=== PATIENT | male | born 1940 | race Caucasian/White ===

== ENCOUNTER 2017-10-01 20:44 | Emergency (ER) | payer MEDICARE ==
[~2017-10-01] VITALS: Ht 182.9 cm; Wt 84.0 kg
[~2017-10-01 20:44] MED LIST: CHOL100046 PO; CLE150C PO; CLOP75TA35 PO; FLUO20CA39 PO; LACT1CAP26 PO; PANT20TA2 PO; SIMV20TA5 PO; ZOLP10TA5 PO
[2017-10-01] MEDS ORDERED: LORazepam 2 mg/ml vial IV ONE (21:35)
[2017-10-01 21:49] LABS: BASOPHILS # (AUTO) 0.1 X10'3 (0-0.2); BASOPHILS % (AUTO) 0.5 % (0-1); EOSINOPHILS # (AUTO) 0.7 X10'3 (0-0.9); EOSINOPHILS % (AUTO) 6.9 % (0-6); HEMATOCRIT 35.6 % (42.0-52.0); HEMOGLOBIN 12.3 g/dl (14.0-17.9); LYMPHOCYTES # (AUTO) 2.3 X10'3 (1.1-4.8); LYMPHOCYTES % (AUTO) 22.2 % (21-51); MEAN CORPUSCULAR HEMOGLOBIN 33.3 PG (27.0-31.0); MEAN CORPUSCULAR HGB CONC 34.7 % (33.0-36.5); MEAN CORPUSCULAR VOLUME 95.9 FL (78-98); MEAN PLATELET VOLUME 7.3 FL (7.4-10.4); MONOCYTES # (AUTO) 1.4 X10'3 (0-0.9); MONOCYTES % (AUTO) 13.4 % (2-12); NEUTROPHILS # (AUTO) 5.9 X10'3 (1.8-7.7); PLATELET COUNT 268 X10'3 (140-440); RED BLOOD COUNT 3.71 X10'6 (4.70-6.10); RED CELL DISTRIBUTION WIDTH 14.5 % (11.5-14.5); WHITE BLOOD COUNT 10.3 X10'3 (4.5-11.0)
[2017-10-01] MEDS ORDERED: LORA-269 PO (21:57)
[2017-10-01 22:11] LABS: ALBUMIN 3.9 G/DL (3.4-5.0); ANION GAP 9 (8-16); BLOOD UREA NITROGEN 22 MG/DL (7-18); CALCIUM 8.7 MG/DL (8.5-10.1); CHLORIDE 105 MMOL/L (99-107); CREATININE 1.22 MG/DL (0.60-1.10); GLUCOSE 104 MG/DL (70-104); SODIUM 141 MMOL/L (135-145); TOTAL CARBON DIOXIDE 26.9 MMOL/L (24-32); TROPONIN I < 0.04 NG/ML (0.0-0.05); eGFR 58 ML/MIN
[2017-10-01 22:28] VITALS: BP 137/69
== END 2017-10-01 22:31 | disposition home or self-care (01) ==
LOC: ER 20:44
DX: R03.0 Elevated blood-pressure reading, without diagnosis of hypertension (principal); T50.995A Adverse effect of other drugs, medicaments and biological substances, initial encounter; E78.00 Pure hypercholesterolemia, unspecified; Z86.73 Personal history of transient ischemic attack (TIA), and cerebral infarction without residual deficits; Z79.02 Long term (current) use of antithrombotics/antiplatelets; Z90.49 Acquired absence of other specified parts of digestive tract; Z98.890 Other specified postprocedural states; Z79.899 Other long term (current) drug therapy
CPT/HCPCS: 36415; 80048; 84484; 85025; 96374; 99285; J2060

== ENCOUNTER 2018-08-02 06:55 | Emergency (ER) | payer MEDICARE ==
[~2018-08-02] VITALS: Ht 182.9 cm; Wt 87.1 kg
[~2018-08-02 06:55] MED LIST changes: -CHOL100046 PO; -CLE150C PO; -LACT1CAP26 PO
[2018-08-02 08:11] LABS: BASOPHILS % (AUTO) 0.7 % (0-1); EOSINOPHILS # (AUTO) 0.8 X10'3 (0-0.9); EOSINOPHILS % (AUTO) 12.3 % (0-6); HEMATOCRIT 36.6 % (42.0-52.0); HEMOGLOBIN 12.2 g/dl (14.0-17.9); LYMPHOCYTES # (AUTO) 1.8 X10'3 (1.1-4.8); MEAN CORPUSCULAR HEMOGLOBIN 32.5 PG (27.0-31.0); MEAN CORPUSCULAR HGB CONC 33.3 % (33.0-36.5); MEAN CORPUSCULAR VOLUME 97.5 FL (78-98); MEAN PLATELET VOLUME 6.8 FL (7.4-10.4); MONOCYTES % (AUTO) 14.6 % (2-12); NEUTROPHILS # (AUTO) 2.9 X10'3 (1.8-7.7); NEUTROPHILS % (AUTO) 44.4 % (42-75); PLATELET COUNT 373 X10'3 (140-440); RED BLOOD COUNT 3.75 X10'6 (4.70-6.10); RED CELL DISTRIBUTION WIDTH 14.1 % (11.5-14.5); WHITE BLOOD COUNT 6.5 X10'3 (4.5-11.0)
[2018-08-02 08:23] LABS: CLARITY,URINE CLEAR (Clear); COLOR,URINE YELLOW (Yellow); GLUCOSE, URINE NEGATIVE (Neg); KETONES,URINE NEGATIVE (Neg); LEUKOCYTE ESTERASE ,URINE NEGATIVE (Neg); NITRITES, URINE NEGATIVE (Neg); OCCULT BLOOD,URINE NEGATIVE (Neg); PROTEIN,URINE NEGATIVE (Neg); UROBILINOGEN,URINE 0.2 E.U/dL (0.2-1.0)
[2018-08-02 08:24] LABS: UA COLLECTION TYPE CLN CATCH MIDSTREAM
[2018-08-02 08:30] LABS: ALANINE AMINOTRANSFERASE 19 U/L (12-78); ALBUMIN 3.5 G/DL (3.4-5.0); ALKALINE PHOSPHATASE 105 IU/L (46-116); ANION GAP 10 (8-16); ASPARTATE AMINO TRANSFERASE 17 U/L (10-37); BILIRUBIN,TOTAL 0.3 MG/DL (0.1-1.0); BLOOD UREA NITROGEN 14 MG/DL (7-18); BUN/CREATININE RATIO 11.9 (5.4-32.0); CALCIUM 8.5 MG/DL (8.5-10.1); CHLORIDE 104 MMOL/L (99-107); CREATININE 1.18 MG/DL (0.60-1.10); GLUCOSE 107 MG/DL (70-104); LIPASE < 50 U/L (73-393); POTASSIUM 4.1 MMOL/L (3.5-5.1); SODIUM 139 MMOL/L (135-145); TOTAL CARBON DIOXIDE 25.1 MMOL/L (24-32); TOTAL PROTEIN 6.9 G/DL (6.4-8.2); eGFR 60 ML/MIN
[2018-08-02 08:48] VITALS: BP 177/105
[2018-08-02] MEDS ORDERED: HYDR-4353 PO (09:02)
[2018-08-02] MEDS ORDERED: ORPH100T2 PO (09:02)
== END 2018-08-02 09:12 | disposition home or self-care (01) ==
LOC: ER 06:56
DX: M54.5 Low back pain (principal); M54.17 Radiculopathy, lumbosacral region; E78.00 Pure hypercholesterolemia, unspecified; Z86.73 Personal history of transient ischemic attack (TIA), and cerebral infarction without residual deficits; Z90.49 Acquired absence of other specified parts of digestive tract; Z98.890 Other specified postprocedural states; Z79.01 Long term (current) use of anticoagulants; Z79.899 Other long term (current) drug therapy
CPT/HCPCS: 36415; 80053; 81003; 83690; 85025; 99284

== ENCOUNTER 2018-10-04 09:34 | Inpatient (IN) | payer MEDICARE | END 2018-10-05 11:00 | disposition home or self-care (01) | LOC: PAS IN 09:34 → ICU 2S 14:25 | PROC: 03CH0ZZ Extirpation of Matter from Right Common Carotid Artery, Open Approach (ICD-10-PCS; principal; 2018-10-04 11:29) | DX: I65.21 Occlusion and stenosis of right carotid artery (principal) ==

== ENCOUNTER 2020-10-25 11:11 | Inpatient (IN) | payer MEDICARE ==
[~2020-10-25] VITALS: Ht 188 cm; Wt 95.5 kg
[~2020-10-25 11:11] MED LIST changes: +CLOP75TA34 PO; -CLOP75TA35 PO; +PROM25TA14 PO; +SIMV-42 PO; -SIMV20TA5 PO; +TURMERIC
--- NOTE | 2020-10-25 11:33 | NUR ---
Per Dr Headley, continue current orders, but pt is suspected s/p seizure and not a stroke at this time.
--- NOTE | 2020-10-25 11:34 | NUR ---
Pt transported to CT via [facility] with tech.
[2020-10-25 12:01] LABS: BASOPHILS # (AUTO) 0.1 X10'3 (0-0.2); BASOPHILS % (AUTO) 1.1 % (0-1); EOSINOPHILS # (AUTO) 0.5 X10'3 (0-0.9); EOSINOPHILS % (AUTO) 8.4 % (0-6); HEMATOCRIT 38.1 % (42.0-52.0); HEMOGLOBIN 12.4 g/dl (14.0-17.9); LYMPHOCYTES # (AUTO) 1.3 X10'3 (1.1-4.8); LYMPHOCYTES % (AUTO) 21.2 % (21-51); MEAN CORPUSCULAR HEMOGLOBIN 32.3 PG (27.0-31.0); MEAN CORPUSCULAR HGB CONC 32.7 g/dL (33.0-36.5); MEAN CORPUSCULAR VOLUME 98.9 FL (78-98); MEAN PLATELET VOLUME 7.2 FL (7.4-10.4); MONOCYTES # (AUTO) 0.9 X10'3 (0-0.9); MONOCYTES % (AUTO) 13.9 % (2-12); NEUTROPHILS # (AUTO) 3.4 X10'3 (1.8-7.7); NEUTROPHILS % (AUTO) 55.4 % (42-75); PLATELET COUNT 230 X10'3 (140-440); RED BLOOD COUNT 3.85 X10'6 (4.70-6.10); RED CELL DISTRIBUTION WIDTH 13.8 % (11.5-14.5); WHITE BLOOD COUNT 6.2 X10'3 (4.5-11.0)
[2020-10-25 12:11] LABS: PARTIAL THROMBOPLASTIN TIME 27 SECONDS (22-32)
[2020-10-25 12:14] LABS: ALANINE AMINOTRANSFERASE 27 U/L (12-78); ALBUMIN 3.4 G/DL (3.4-5.0); ALKALINE PHOSPHATASE 57 IU/L (46-116); ANION GAP 6 (8-16); ASPARTATE AMINO TRANSFERASE 24 U/L (10-37); BILIRUBIN,TOTAL 0.2 MG/DL (0.1-1.0); BLOOD UREA NITROGEN 19 MG/DL (7-18); BUN/CREATININE RATIO 18.6 (5.4-32.0); CALCIUM 8.8 MG/DL (8.5-10.1); CHLORIDE 105 MMOL/L (99-107); CREATININE 1.02 MG/DL (0.60-1.10); GLUCOSE 125 MG/DL (70-104); POTASSIUM 4.4 MMOL/L (3.5-5.1); SODIUM 139 MMOL/L (135-145); TOTAL CARBON DIOXIDE 27.7 MMOL/L (24-32); TOTAL PROTEIN 6.7 G/DL (6.4-8.2); eGFR 70 ML/MIN
[2020-10-25 12:18] LABS: TROPONIN I < 0.04 NG/ML (0.0-0.05)
--- NOTE | 2020-10-25 12:39 | NUR ---
Pt attempted to use urinal. Unable to at this time, will try again in a little bit.
[2020-10-25] MEDS ORDERED: acetaminophen 325mg tablet PO PRN (12:40)
[2020-10-25] MEDS ORDERED: ondansetron/PF 4mg/2ml inj IV PRN (12:40)
[2020-10-25] MEDS ORDERED: magnesium hydroxide 30ml (MOM) UD suspension PO PRN (12:40)
[2020-10-25] MEDS ORDERED: mag hydrox/Alum hydrox/simeth 30ml oral suspension PO PRN (12:40)
[2020-10-25] MEDS ORDERED: ASPI-1265 PO (12:44)
[2020-10-25] MEDS ORDERED: ROSU40TA22 PO (12:44)
[2020-10-25 13:03] LABS: CHOL/HDL RATIO 2.2 (0.00-4.99); CHOLESTEROL 128 MG/DL (0-200); HDL CHOLESTEROL 59 MG/DL (35-60); LDL CHOLESTEROL 49 MG/DL (50-100); TRIGLYCERIDES 93 MG/DL (20-135)
--- NOTE | 2020-10-25 13:26 | NUR ---
Pt's son is Adis Milner. He can be reached at [phone].
[2020-10-25 14:19] LABS: CLARITY,URINE CLEAR (Clear); COLOR,URINE YELLOW (Yellow); GLUCOSE, URINE NEGATIVE (Neg); KETONES,URINE NEGATIVE (Neg); LEUKOCYTE ESTERASE ,URINE NEGATIVE (Neg); NITRITES, URINE NEGATIVE (Neg); OCCULT BLOOD,URINE NEGATIVE (Neg); PROTEIN,URINE NEGATIVE (Neg); UROBILINOGEN,URINE 0.2 E.U/dL (0.2-1.0)
[2020-10-25 14:24] LABS: UA COLLECTION TYPE URINAL
--- NOTE | 2020-10-25 14:25 | NUR ---
Pt in MRI
--- NOTE | 2020-10-25 15:36 | NUR ---
Dr Burt aware of pt's BP of 227/119. He said that we are going to treat it because he is a possible stroke pt.
[2020-10-25] MEDS ORDERED: FLO0.4C PO (15:46)
--- NOTE | 2020-10-25 16:17 | NUR ---
Called report to Neuro. The room is not clean. They will call when the room is ready.
[2020-10-25] MEDS ORDERED: zolpidem 5mg tablet PO PRN ×2 (16:45)
[2020-10-25] MEDS: normal saline 1000ml 1,000 ML IV SCH ×2 (16:54→22:40)
[2020-10-25 17:21] VITALS: BP 203/96
--- NOTE | 2020-10-25 18:30 | NUR ---
Patient in room ORTHO 4007. I have received report from Rashawn WALKER and had the opportunity to ask questions and assume patient care.
--- NOTE | 2020-10-25 19:05 | NUR ---
Problems reprioritized. Patient report given, questions answered & plan of care reviewed with Shira WALKER.
[2020-10-25] MEDS ORDERED: amLODIPine 5mg tablet PO ONE (19:30)
--- NOTE | 2020-10-25 19:39 | NUR ---
Called regarding elevated BP for 211/111 at 1720 and also just rechecked for 203/96, 61. One time order of norvasc 5mg now to be given.
[2020-10-25 19:45] VITALS: BP 211/111
[2020-10-25] MEDS: heparin, porcine 5000 units/ml vial SQ SCH (19:53)
[2020-10-25] MEDS ORDERED: FLUoxetine 20mg capsule PO SCH ×2 (21:00→23:40)
[2020-10-25] MEDS ORDERED: proMETHazine 25mg tablet PO SCH ×2 (21:00→23:39)
[2020-10-25] MEDS ORDERED: pantoprazole 40mg Tablet.DR PO SCH (21:00)
[2020-10-25 22:30] VITALS: BP 178/88
--- NOTE | 2020-10-25 23:00 | NUR ---
aware of BP decreasing although still high at 178/88, 64. No new orders.
--- NOTE | 2020-10-25 23:38 | NUR ---
Message sent down to pharmacy with regards to prozac and phenergan medication. Pt. refused these 2 meds this evening stating "I take them in the AM along with an [id number] stool softner. Obtained order for colace 100mg daily to be given in the AM.
[2020-10-26] MEDS: normal saline 1000ml 1,000 ML IV SCH (02:56)
[2020-10-26 06:00] VITALS: BP 186/92
--- NOTE | 2020-10-26 06:35 | NUR ---
Problems reprioritized. Patient report given, questions answered & plan of care reviewed with Teresa WALKER.
[2020-10-26 07:35] LABS: BASOPHILS # (AUTO) 0.1 X10'3 (0-0.2); BASOPHILS % (AUTO) 0.8 % (0-1); EOSINOPHILS # (AUTO) 0.6 X10'3 (0-0.9); EOSINOPHILS % (AUTO) 6.9 % (0-6); HEMOGLOBIN 12.1 g/dl (14.0-17.9); LYMPHOCYTES # (AUTO) 1.6 X10'3 (1.1-4.8); LYMPHOCYTES % (AUTO) 20.1 % (21-51); MEAN CORPUSCULAR HEMOGLOBIN 32.4 PG (27.0-31.0); MEAN CORPUSCULAR HGB CONC 32.6 g/dL (33.0-36.5); MEAN CORPUSCULAR VOLUME 99.4 FL (78-98); MEAN PLATELET VOLUME 8.1 FL (7.4-10.4); MONOCYTES # (AUTO) 1.1 X10'3 (0-0.9); MONOCYTES % (AUTO) 13.3 % (2-12); NEUTROPHILS # (AUTO) 4.7 X10'3 (1.8-7.7); NEUTROPHILS % (AUTO) 58.9 % (42-75); PLATELET COUNT 244 X10'3 (140-440); RED BLOOD COUNT 3.72 X10'6 (4.70-6.10); RED CELL DISTRIBUTION WIDTH 13.5 % (11.5-14.5)
[2020-10-26 07:36] LABS: ALBUMIN 3.3 G/DL (3.4-5.0); ANION GAP 9 (8-16); BLOOD UREA NITROGEN 18 MG/DL (7-18); BUN/CREATININE RATIO 19.4 (5.4-32.0); CHLORIDE 106 MMOL/L (99-107); CREATININE 0.93 MG/DL (0.60-1.10); GLUCOSE 127 MG/DL (70-104); POTASSIUM 4.7 MMOL/L (3.5-5.1); SODIUM 142 MMOL/L (135-145); TOTAL CARBON DIOXIDE 27.1 MMOL/L (24-32); eGFR 78 ML/MIN
[2020-10-26] MEDS ORDERED: atorvastatin 20mg tablet PO SCH (08:00)
[2020-10-26] MEDS ORDERED: aspirin 81mg tablet.DR PO SCH (08:00)
[2020-10-26] MEDS ORDERED: tamsulosin 0.4mg capsule PO SCH (08:00)
[2020-10-26 10:00] VITALS: BP 99/80
[2020-10-26 10:32] VITALS: BP 127/54
[2020-10-26] MEDS: heparin, porcine 5000 units/ml vial SQ SCH (11:08)
--- NOTE | 2020-10-26 12:15 | NUR ---
PATIENT STABLE AND APPROPRIATE FOR DISCHARGE, TELE REMOVED, IV TAKEN OUT, EDUCATION GIVEN, ALL BELONGINGS SENT WITH PATIENT, PATIENT TAKEN TO LOBBY IN WHEELCHAIR TO AN AWAITING CAR WHERE SON WILL TAKE PATIENT HOME
== END 2020-10-26 14:56 | disposition home health service (06) | DRG 90 ==
LOC: ER 11:11 → ED HOLD 12:40 → EDBEDREQ 15:58 → ORTHO 4S 16:45
PROVIDERS: ADMIT Family Medicine; ATTEND Family Medicine
PROC: 4A10X4Z Monitoring of Central Nervous Electrical Activity, External Approach (ICD-10-PCS; principal; 2020-10-25)
DX: S06.0X9A Concussion with loss of consciousness of unspecified duration, initial encounter (principal); E78.00 Pure hypercholesterolemia, unspecified; E78.5 Hyperlipidemia, unspecified; I10 Essential (primary) hypertension; N40.0 Benign prostatic hyperplasia without lower urinary tract symptoms; F32.9 Major depressive disorder, single episode, unspecified; K21.9 Gastro-esophageal reflux disease without esophagitis; Z86.73 Personal history of transient ischemic attack (TIA), and cerebral infarction without residual deficits; Z90.49 Acquired absence of other specified parts of digestive tract; Z63.4 Disappearance and death of family member; Z88.5 Allergy status to narcotic agent
CPT/HCPCS: 36415; 70450; 70544; 70551; 71045; 80048; 80053; 80061; 81003; 82948; 84484; 85025; 85610; 85730; 87081; 93005; 93306; 93308; 93880; 95816; 99285; G0378; J1644; J7030; Q0169

== ENCOUNTER 2022-03-16 09:32 | Emergency (ER) | payer MEDICARE ==
[~2022-03-16] VITALS: Ht 182.9 cm; Wt 90.9 kg
[~2022-03-16 09:32] MED LIST changes: +DOCU-148 PO; -FLUO20CA39 PO; +FLUO40CA10 PO; +GABA300C PO; +LEVO-65 PO; +MULT-1085 PO; +PANT-47 PO; -PANT20TA2 PO; -PROM25TA14 PO; +ROSU40TA22 PO; -SIMV-42 PO; -TURMERIC
[2022-03-16] MEDS ORDERED: HYDROcodone/acetaminophen 5mg/325mg tablet PO ONE (12:45)
[2022-03-16 13:05] VITALS: BP 196/98
--- NOTE | 2022-03-16 13:06 | NUR ---
Pt connected to jewelry repairer for further observation.
[2022-03-16] MEDS ORDERED: LIDOcaine 1% 30ml preserv. free vial IJ ONE (13:15)
[2022-03-16] MEDS ORDERED: HYDR-3965 PO (14:36)
== END 2022-03-16 14:51 | disposition home or self-care (01) ==
LOC: ER 09:32
DX: S62.307A Unspecified fracture of fifth metacarpal bone, left hand, initial encounter for closed fracture (principal); S43.51XA Sprain of right acromioclavicular joint, initial encounter; E78.00 Pure hypercholesterolemia, unspecified; Z88.5 Allergy status to narcotic agent; Z98.890 Other specified postprocedural states; V29.9XXA Motorcycle rider (driver) (passenger) injured in unspecified traffic accident, initial encounter; Y93.89 Activity, other specified; Y92.89 Other specified places as the place of occurrence of the external cause; Y99.8 Other external cause status; S09.90XA Unspecified injury of head, initial encounter; S16.1XXA Strain of muscle, fascia and tendon at neck level, initial encounter
CPT/HCPCS: 26605; 70450; 72125; 73030; 73120; 73130; 99284; J7030; A4565; A6446; A6449

== ENCOUNTER 2023-08-30 14:38 | Inpatient (IN) | payer MEDICARE ==
[~2023-08-30] VITALS: Ht 182.9 cm; Wt 83.8 kg
[~2023-08-30 14:38] MED LIST changes: -LEVO-65 PO
[2023-08-30 15:52] LABS: BASOPHILS # (AUTO) 0.1 X10'3 (0-0.2); BASOPHILS % (AUTO) 0.6 % (0-1); EOSINOPHILS # (AUTO) 0.4 X10'3 (0-0.9); EOSINOPHILS % (AUTO) 4.2 % (0-6); HEMATOCRIT 39.5 % (42.0-52.0); HEMOGLOBIN 13.3 g/dl (14.0-17.9); LYMPHOCYTES # (AUTO) 1.8 X10'3 (1.1-4.8); LYMPHOCYTES % (AUTO) 19.1 % (21-51); MEAN CORPUSCULAR HEMOGLOBIN 32.4 PG (27.0-31.0); MEAN CORPUSCULAR HGB CONC 33.5 g/dL (33.0-36.5); MEAN CORPUSCULAR VOLUME 96.5 FL (78-98); MEAN PLATELET VOLUME 7.8 FL (7.4-10.4); MONOCYTES # (AUTO) 1.3 X10'3 (0-0.9); MONOCYTES % (AUTO) 14.2 % (2-12); NEUTROPHILS # (AUTO) 5.7 X10'3 (1.8-7.7); NEUTROPHILS % (AUTO) 61.9 % (42-75); PLATELET COUNT 340 X10'3 (140-440); RED CELL DISTRIBUTION WIDTH 13.8 % (11.5-14.5); WHITE BLOOD COUNT 9.2 X10'3 (4.5-11.0)
[2023-08-30 16:13] LABS: D-DIMER 0.69 MG/L FEU (0-0.50)
[2023-08-30 16:24] LABS: ALANINE AMINOTRANSFERASE 25 U/L (12-78); ALBUMIN 3.8 G/DL (3.4-5.0); ALKALINE PHOSPHATASE 64 IU/L (46-116); ANION GAP 9 (8-16); ASPARTATE AMINO TRANSFERASE 25 U/L (10-37); BILIRUBIN,TOTAL 0.5 MG/DL (0.1-1.0); BLOOD UREA NITROGEN 14 MG/DL (7-18); BUN/CREATININE RATIO 13.9 (10.0-20.0); CALCIUM 9.3 MG/DL (8.5-10.1); CHLORIDE 102 MMOL/L (99-107); CREATININE 1.01 MG/DL (0.60-1.10); GLUCOSE 107 MG/DL (70-104); POTASSIUM 4.4 MMOL/L (3.5-5.1); PRO BRAIN NATRIURETIC PEPTIDE 231 PG/ML (0-450); SODIUM 137 MMOL/L (135-145); TOTAL CARBON DIOXIDE 25.9 MMOL/L (24-32); TOTAL PROTEIN 7.7 G/DL (6.4-8.2); eCRCL 61 ML/MIN; eGFR 71 ML/MIN
[2023-08-30] MEDS ORDERED: iohexol 350MG/ML 100ml bottle IV ONE (19:14)
[2023-08-31] MEDS: guaiFENesin 200 MG/10 ML oral syrup UD cup PO ONE (01:33)
[2023-08-31] MEDS ORDERED: acetaminophen 325mg tablet PO PRN ×2 (08:10)
[2023-08-31] MEDS ORDERED: magnesium 4gm in 100ml NS 100 ML IV PRN (08:10)
[2023-08-31] MEDS ORDERED: magnesium 2GM in 50ml NS 50 ML IV PRN (08:10)
[2023-08-31] MEDS ORDERED: ondansetron/PF 4mg/2ml inj IV PRN (08:10)
[2023-08-31] MEDS ORDERED: mag hydrox/Alum hydrox/simeth 30ml oral suspension PO PRN (08:10)
[2023-08-31] MEDS ORDERED: potassium Cl 20 mEq SR tablet PO PRN ×2 (08:10)
[2023-08-31] MEDS ORDERED: potassium Cl 40MEQ/1/2NS 520ml 520 ML IV PRN (08:10)
[2023-08-31] MEDS ORDERED: magnesium hydroxide 30ml (MOM) UD suspension PO PRN (08:10)
[2023-08-31] MEDS ORDERED: magnesium Cl slow-release 64mg tablet PO PRN (08:10)
[2023-08-31] MEDS: guaiFENesin ER 600mg tablet PO SCH (08:22)
[2023-08-31] MEDS ORDERED: FLO0.4C PO (08:34)
[2023-08-31] MEDS ORDERED: ACET-1008 PO (08:34)
[2023-08-31] MEDS ORDERED: PANT-47 PO (08:34)
[2023-08-31] MEDS ORDERED: GABA600T13 PO (08:34)
[2023-08-31] MEDS: normal saline 1000ml 1,000 ML IV SCH (08:46)
[2023-08-31 09:16] LABS: BASOPHILS # (AUTO) 0.1 X10'3 (0-0.2); BASOPHILS % (AUTO) 1.1 % (0-1); EOSINOPHILS # (AUTO) 0.5 X10'3 (0-0.9); EOSINOPHILS % (AUTO) 7.6 % (0-6); HEMATOCRIT 37.7 % (42.0-52.0); HEMOGLOBIN 12.4 g/dl (14.0-17.9); LYMPHOCYTES % (AUTO) 32.4 % (21-51); MEAN CORPUSCULAR HEMOGLOBIN 32.2 PG (27.0-31.0); MEAN CORPUSCULAR HGB CONC 32.9 g/dL (33.0-36.5); MEAN CORPUSCULAR VOLUME 97.9 FL (78-98); MEAN PLATELET VOLUME 7.5 FL (7.4-10.4); MONOCYTES # (AUTO) 1.1 X10'3 (0-0.9); MONOCYTES % (AUTO) 17.8 % (2-12); NEUTROPHILS # (AUTO) 2.5 X10'3 (1.8-7.7); NEUTROPHILS % (AUTO) 41.1 % (42-75); PLATELET COUNT 318 X10'3 (140-440); RED BLOOD COUNT 3.85 X10'6 (4.70-6.10); RED CELL DISTRIBUTION WIDTH 13.9 % (11.5-14.5); WHITE BLOOD COUNT 6.2 X10'3 (4.5-11.0)
[2023-08-31 10:18] LABS: HEMOGLOBIN A1C 6.5 % (4.5-6.2)
[2023-08-31 11:30] LABS: ALANINE AMINOTRANSFERASE 20 U/L (12-78); ALBUMIN 3.5 G/DL (3.4-5.0); ALKALINE PHOSPHATASE 56 IU/L (46-116); ANION GAP 9 (8-16); ASPARTATE AMINO TRANSFERASE 25 U/L (10-37); BILIRUBIN,TOTAL 0.3 MG/DL (0.1-1.0); BLOOD UREA NITROGEN 16 MG/DL (7-18); BUN/CREATININE RATIO 16.8 (10.0-20.0); CALCIUM 8.9 MG/DL (8.5-10.1); CHLORIDE 104 MMOL/L (99-107); CREATININE 0.95 MG/DL (0.60-1.10); GLUCOSE 109 MG/DL (70-104); POTASSIUM 4.1 MMOL/L (3.5-5.1); SODIUM 139 MMOL/L (135-145); TOTAL CARBON DIOXIDE 26.4 MMOL/L (24-32); eCRCL 65 ML/MIN; eGFR 76 ML/MIN
[2023-08-31] MEDS ORDERED: DEXTROSE 15 GM of carb/4 tabs (each vial/BOTTLE has 4 tablets) PO PRN ×2 (14:55)
[2023-08-31] MEDS ORDERED: dextrose 50%-water 50ml dispensing syringe IV PRN ×2 (14:55)
[2023-08-31] MEDS ORDERED: insulin Lispro (HumaLOG) vial - multi-dose SQ SCH (14:55)
[2023-08-31] MEDS ORDERED: glucagon, human recombinant 1mg kit SUBCUT PRN (14:55)
[2023-08-31] MEDS: MESSAGE TO PHARMACY PO ONE (14:55)
[2023-08-31] MEDS: guaiFENesin 200 MG/10 ML oral syrup UD cup PO PRN (15:02)
[2023-08-31] MEDS: CefTRIAXone/D5W-Rocephin 1gm 50 ML IV ONE (15:03)
[2023-08-31] MEDS: azithromycin 250mg tablet PO SCH (15:05)
[2023-08-31] MEDS: methylPREDNISolone sod succ 125mg/2ml vial IV SCH (15:06)
[2023-08-31] MEDS ORDERED: BUDESONIDE 180 MCG AER.POW.BA INH SCH (15:20)
[2023-08-31] MEDS ORDERED: BUDESONIDE 180 MCG AER.POW.BA INH PRN (15:25)
[2023-08-31] MEDS ORDERED: albuterol 60 PUFF/8GM Inhaler (90mcg/1 puff) IH PRN (15:30)
[2023-08-31 18:08] VITALS: PULSE 77; RESP 16; O2SAT 97
[2023-08-31] MEDS: gabapentin 300mg capsule PO SCH (20:00)
[2023-08-31] MEDS ORDERED: heparin, porcine 5000 units/ml vial SQ SCH (20:00)
[2023-08-31] MEDS: K and/or MAG REPLACEMENT MC SCH (20:05)
[2023-08-31] MEDS: ROSUVASTATIN CALCIUM 5 MG TABLET PO SCH (21:00)
[2023-08-31] MEDS: tamsulosin 0.4mg capsule PO SCH (21:24)
[2023-08-31 22:00] VITALS: BP 138/81; PULSE 78; RESP 20; TEMP 99.7; O2SAT 92
[2023-08-31] MEDS: insulin glargine (Lantus) pen - multi-dose SQ SCH (23:00)
[2023-09-01] MEDS ORDERED: AMLO2.5T2 PO (01:45)
[2023-09-01 02:00] VITALS: BP 150/82; PULSE 69; RESP 18; TEMP 96.9; O2SAT 94
[2023-09-01 06:00] VITALS: BP 175/85; PULSE 60; RESP 18; TEMP 97.4; O2SAT 93
[2023-09-01 06:47] LABS: BASOPHILS % (AUTO) 0.2 % (0-1); EOSINOPHILS % (AUTO) 0.1 % (0-6); HEMATOCRIT 36.9 % (42.0-52.0); HEMOGLOBIN 12.3 g/dl (14.0-17.9); LYMPHOCYTES # (AUTO) 1.1 X10'3 (1.1-4.8); LYMPHOCYTES % (AUTO) 13.7 % (21-51); MEAN CORPUSCULAR HEMOGLOBIN 32.4 PG (27.0-31.0); MEAN CORPUSCULAR HGB CONC 33.3 g/dL (33.0-36.5); MEAN CORPUSCULAR VOLUME 97.2 FL (78-98); MEAN PLATELET VOLUME 7.7 FL (7.4-10.4); MONOCYTES # (AUTO) 0.6 X10'3 (0-0.9); MONOCYTES % (AUTO) 7.5 % (2-12); NEUTROPHILS # (AUTO) 6.4 X10'3 (1.8-7.7); NEUTROPHILS % (AUTO) 78.5 % (42-75); PLATELET COUNT 321 X10'3 (140-440); RED BLOOD COUNT 3.79 X10'6 (4.70-6.10); RED CELL DISTRIBUTION WIDTH 13.6 % (11.5-14.5); WHITE BLOOD COUNT 8.1 X10'3 (4.5-11.0)
[2023-09-01 07:13] LABS: ALANINE AMINOTRANSFERASE 20 U/L (12-78); ALBUMIN 3.4 G/DL (3.4-5.0); ALKALINE PHOSPHATASE 56 IU/L (46-116); ANION GAP 10 (8-16); ASPARTATE AMINO TRANSFERASE 18 U/L (10-37); BILIRUBIN,TOTAL 0.3 MG/DL (0.1-1.0); BLOOD UREA NITROGEN 19 MG/DL (7-18); BUN/CREATININE RATIO 20.2 (10.0-20.0); CALCIUM 8.8 MG/DL (8.5-10.1); CHLORIDE 102 MMOL/L (99-107); CHOL/HDL RATIO 1.9 (0.00-4.99); CHOLESTEROL 99 MG/DL (0-200); CREATININE 0.94 MG/DL (0.60-1.10); GLUCOSE 161 MG/DL (70-104); HDL CHOLESTEROL 53 MG/DL (35-60); LDL CHOLESTEROL 34 MG/DL (50-100); MAGNESIUM 2.1 MG/DL (1.5-2.4); PHOSPHORUS 3.5 MG/DL (2.3-4.5); POTASSIUM 4.4 MMOL/L (3.5-5.1); SODIUM 136 MMOL/L (135-145); TOTAL PROTEIN 6.9 G/DL (6.4-8.2); TRIGLYCERIDES 40 MG/DL (20-135); eCRCL 65 ML/MIN; eGFR 77 ML/MIN
[2023-09-01] MEDS: clopidogrel 75mg tablet PO SCH (08:30)
[2023-09-01] MEDS: pantoprazole 40mg Tablet.DR PO SCH (08:30)
[2023-09-01 11:00] VITALS: BP 149/88; PULSE 71; RESP 18; TEMP 97.9; O2SAT 94
[2023-09-01] MEDS ORDERED: CEFD300C3 PO (12:43)
[2023-09-01] MEDS ORDERED: AZIT500T PO (12:47)
[2023-09-01] MEDS ORDERED: PRED10TA PO (12:47)
== END 2023-09-01 15:08 | disposition home health service (06) | DRG 178 ==
LOC: ER 14:38 → ED HOLD 23:50 → PCU 3S 08-31 21:41
PROVIDERS: ADMIT Internal Medicine; ATTEND Family Medicine
PROC: B32T1ZZ Computerized Tomography (CT Scan) of Left Pulmonary Artery using Low Osmolar Contrast (ICD-10-PCS; principal; 2023-08-30)
PROC: B3201ZZ Computerized Tomography (CT Scan) of Thoracic Aorta using Low Osmolar Contrast (ICD-10-PCS; 2023-08-30)
PROC: B32S1ZZ Computerized Tomography (CT Scan) of Right Pulmonary Artery using Low Osmolar Contrast (ICD-10-PCS; 2023-08-30)
DX: J15.69 Pneumonia due to other Gram-negative bacteria (principal); J84.9 Interstitial pulmonary disease, unspecified; I71.20 Thoracic aortic aneurysm, without rupture, unspecified; J15.9 Unspecified bacterial pneumonia; I10 Essential (primary) hypertension; D64.9 Anemia, unspecified; F32.A Depression, unspecified; E78.00 Pure hypercholesterolemia, unspecified; Z20.822 Contact with and (suspected) exposure to COVID-19; Z86.73 Personal history of transient ischemic attack (TIA), and cerebral infarction without residual deficits; Z79.899 Other long term (current) drug therapy; Z79.01 Long term (current) use of anticoagulants; Z90.49 Acquired absence of other specified parts of digestive tract; Z87.891 Personal history of nicotine dependence
CPT/HCPCS: 36415; 71046; 71275; 80053; 80061; 82164; 82310; 82948; 83036; 83605; 83735; 83880; 84100; 84132; 84145; 84484; 85025; 85379; 85610; 85651; 87040; 87081; 87502; 87503; 87811; 93005; 94760; 99285; G0378; J0696; J1815; J2930; J3490; J7030; Q9967

== ENCOUNTER 2025-07-03 13:09 | Outpatient (CLI) | payer MEDICARE ==
[~2025-07-03 13:09] MED LIST changes: +ACET-1008 PO; +AMLO2.5T2 PO; +GABA-1405 PO; -GABA300C PO; +PRED10TA PO; -ROSU40TA22 PO; +ROSU40TA89 PO
--- NOTE | 2025-07-03 13:47 | RADIOLOGY REPORT ---
CLINICAL HISTORY: FALL THIS AM BRUISE LEFT SIDE OF HEAD TECHNIQUE: Helical scanning was performed of the head from the skull base to the vertex. Multiplanar reconstructions were performed. This exam was performed according to our departmental dose optimization program. Up-to-date CT equipment and radiation dose reduction techniques are utilized as appropriate. CTDI 52 DLP 884 COMPARISON: CT STROKE ALERT on DOS: 02/24/23, CT HEAD on DOS: 03/16/22 FINDINGS: There is no evidence for acute intracranial hemorrhage, acute ischemic changes, mass, mass effect, or extra-axial fluid collection. There is no hydrocephalus or midline shift. There is no effacement of the cerebral sulci and basal subarachnoid cisterns. The fleming-white matter differentiation is well maintained. There is mild brain volume loss and minimal chronic small vessel ischemic change. There has been bilateral cataract extraction. The imaged paranasal sinuses are clear. IMPRESSION: NO ACUTE INTRACRANIAL ABNORMALITY SEEN.
== END 2025-07-03 23:59 | disposition home or self-care (01) ==
LOC: RAD 13:09
PROVIDERS: ATTEND Family Medicine
DX: S00.03XA Contusion of scalp, initial encounter (principal); G93.89 Other specified disorders of brain; X58.XXXA Exposure to other specified factors, initial encounter; Y93.89 Activity, other specified; Y92.89 Other specified places as the place of occurrence of the external cause; Y99.8 Other external cause status
CPT/HCPCS: 70450

== ENCOUNTER 2025-07-08 11:37 | Outpatient (CLI) | payer MEDICARE ==
[2025-07-08] MEDS ORDERED: iohexol 300mg/ml 100ml inj. ONE (12:24)
--- NOTE | 2025-07-08 13:35 | RADIOLOGY REPORT ---
EXAM: CT CT ABDOMEN PELVIS W/WO IV CONTRAST HISTORY: NOCTURIA TECHNIQUE: Volumetric multidetector CT images of the abdomen and pelvis were obtained after the administration of intravenous contrast. All CT scans at this facility use dose modulation, iterative reconstruction, and/or weight based dosing when appropriate to reduce radiation dose to as low as reasonably achievable. COMPARISON: None FINDINGS: [LOWER CHEST]: Atelectasis and/or pleural-parenchymal scarring in bilateral lung bases. Calcific granuloma in the left lower lobe. [LIVER]: Normal hepatic size without suspicious focal lesion. [GALLBLADDER AND BILIARY TREE]: Trace area nodular enhancement along the posterior gallbladder wall measuring 2 mm. Consideration for adenomyomatosis versus small gallbladder polyp [SPLEEN]: Calcifications, which may be related to antecedent granulomatous infection. [PANCREAS]: Fatty atrophy, which may be seen in the setting of underlying metabolic derangement such as diabetes. [ADRENAL GLANDS]: Unremarkable [KIDNEYS]: No hydronephrosis. No nephroureterolithiasis. Benign-appearing cysts of the right kidney [BLADDER]: Circumferential bladder wall thickening correlate with urinalysis [REPRODUCTIVE ORGANS]: Unremarkable. [BOWEL/MESENTERY]: Slight fatty prominence in the posterior mediastinum surrounding the distal esophagus slight proximal stomach wall thickening circumferentially despite decompression. Correlate for chronic gastritis. Consider upper endoscopy to exclude malignancy. Prominent stool distention of the lower rectum. Minimal sigmoid diverticulosis. [ASCITES]: Absent [LYMPHADENOPATHY]: No pathologically enlarged lymph nodes by CT size criteria [VASCULATURE]: Mixed atherosclerotic plaque along the superior mesenteric artery without complete occlusion. [ABDOMINAL WALL]: Unremarkable. [MUSCULOSKELETAL]: No acute fracture or aggressive focal osseous lesion. Multifocal degenerative change of the visualized spine. incompletely healed fracture along the anterior margin of the right femoral neck (axial 110). Minimal multilevel superior endplate height loss measuring 10-20 percent of L3 a nd L4. Also involvement which is likely chronic of T12 without evidence of retropulsion. IMPRESSION: 1. Circumferential bladder wall thickening. 2. Correlate with urinalysis for underlying acute versus chronic cystitis. 3. No hydronephrosis or nephroureterolithiasis. 4. Incompletely healed fracture along the anterior margin of the right femoral neck. 5. Proximal stomach wall thickening circumferentially despite decompression. Correlate for chronic gastritis. Consider upper endoscopy to exclude malignancy.
--- NOTE | 2025-07-08 14:37 | RADIOLOGY REPORT ---
ULTRASOUND OF SCROTUM AND CONTENTS. INDICATION: TESTICULAR PAIN AND SWELLING COMPARISON: None TECHNIQUE: Multiple real-time grayscale sonographic and color and duplex Doppler images of the scrotum and its contents were obtained. FINDINGS: The right testicle measures 3.4 x 2.1 x 2.6 cm. The left testicle measures 3.5 x 1.8 x 2.3 cm. Both testicles demonstrate homogeneous echotexture without evidence of focal lesions. Atrophic changes of bilateral testicles. The right epididymis measures 1.3 cm. The left epididymis measures 1.3 cm. Subsequent color and duplex Doppler interrogation of the testes demonstrated symmetric normal vascular flow to both testicles. No focal areas of hyperemia were seen. Small to moderate Bilateral hydrocele with small volume debris on the right. IMPRESSION: No evidence of torsion, epididymitis, and/or orchitis. Small to moderate Bilateral hydrocele with small volume debris on the right.
== END 2025-07-08 23:59 | disposition home or self-care (01) ==
LOC: RAD 11:37
PROVIDERS: ATTEND Nurse Practitioner
DX: K29.50 Unspecified chronic gastritis without bleeding (principal); N28.1 Cyst of kidney, acquired; N50.89 Other specified disorders of the male genital organs; R35.1 Nocturia; J98.11 Atelectasis; J84.10 Pulmonary fibrosis, unspecified; J98.4 Other disorders of lung; K86.89 Other specified diseases of pancreas; N43.3 Hydrocele, unspecified
CPT/HCPCS: 74176; 74177; 76870; 93976; Q9967; 74178